=== PATIENT | male | born 1975 | race Caucasian/White ===

== ENCOUNTER 2024-05-20 08:37 | Emergency (ER) | payer BC ==
[2024-05-20] MEDS: Ketorolac 0.5% Ophth Soln 5 ML Bottle EYELF ONE (09:44)
[2024-05-20] MEDS: Ciprofloxacin 0.3% Ophth Soln 5 ML Bottle EYELF ONE (09:45)
[2024-05-20] MEDS: Proparacaine 0.5% Ophth Soln 15 ML Bottle EYELF ONE (09:48)
== END 2024-05-20 09:40 | disposition home or self-care (01) ==
LOC: JD.ED 08:37
DX: T15.02XA Foreign body in cornea, left eye, initial encounter (principal); F17.210 Nicotine dependence, cigarettes, uncomplicated; X58.XXXA Exposure to other specified factors, initial encounter
CPT/HCPCS: 99283; A9270; J3490